=== PATIENT | female | born 1975 ===

== ENCOUNTER 2018-08-09 13:05 | Emergency (ER) | payer OTHER, MEDICAID ==
[2018-08-09 13:14] VITALS: BMI 32.5
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
[2018-08-09 15:16] VITALS: RESP 17; O2SAT 99
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
[2018-08-09 15:40] LABS: URINE BILIRUBIN NEGATIVE (NEGATIVE); URINE BLOOD NEGATIVE (NEGATIVE); URINE GLUCOSE (UA) NEGATIVE (NEGATIVE); URINE LEUKOCYTE ESTERASE NEGATIVE Leu/uL (NEGATIVE); URINE PROTEIN NEGATIVE mg/dL (<30 mg/dL); URINE UROBILINOGEN 0.2 E.U./dL (<1 E.U./dL)
[2018-08-09 15:46] LABS: URINE APPEARANCE CLEAR (CLEAR); URINE COLOR YELLOW (YELLOW)
--- NOTE | 2018-08-09 15:50 | CARD ---
APPROVED REPORT Date of service: 08/09/2018 EKG Measurement Heart [id number] <Conclusion> Normal sinus rhythm Minimal voltage criteria for LVH, may be normal variant Nonspecific T wave abnormality Abnormal ECG
[2018-08-09 15:51] VITALS: BP 134/76
[2018-08-09 16:01] VITALS: PULSE 80; TEMP 98.4
== END 2018-08-09 15:30 | disposition home or self-care (01) ==
LOC: ED 13:05
DX: S20.01XA Contusion of right breast, initial encounter (principal); V49.49XA Driver injured in collision with other motor vehicles in traffic accident, initial encounter; W22.11XA Striking against or struck by driver side automobile airbag, initial encounter; Y92.410 Unspecified street and highway as the place of occurrence of the external cause; I10 Essential (primary) hypertension
CPT/HCPCS: 71045; 81003; 93005; 96372; 99284; J1885

== ENCOUNTER 2019-03-27 09:26 | Outpatient (CLI) | payer MEDICAID | END 2019-03-27 09:27 | disposition home or self-care (01) | LOC: RAD 09:26 ==